=== PATIENT | female | born 1940 | race Caucasian/White ===

== ENCOUNTER → 2016-11-14 | Outpatient (CLI) | payer OTHER ==
--- NOTE | 2016-11-14 16:53 | MAMMOGRAPHY REPORT ---
BILATERAL DIGITAL SCREENING MAMMOGRAM WITH CAD: 11/14/2016 TECHNIQUE: Current study was also evaluated with a Computer Aided Detection (CAD) system. Bilatera l CC and MLO views were obtained. COMPARISON: Comparison is made to exams dated: 10/14/2015 mammogram, 10/13/2014 mammogram, 08/05/2012 mammogram, 07/31/2010 mammogram, 10/12/2013 mammogram, and 08/02/2011 mammogram - [facility]. BREAST COMPOSITION: There are scattered areas of fibroglandular density in both breasts. FINDINGS: No suspicious masses, calcifications, or areas of architectural distortion are noted in e ither breast. There has been no significant interval change compared to prior exams. IMPRESSION: ACR BI-RADS CATEGORY 1: NEGATIVE There is no mammographic evidence of malignancy. A 1 year screening mammogram is recommended. The p atient will receive written notification of the results. Approximately 10% of breast cancers are not detected with mammography. A negative mammographic repor t should not delay biopsy if a clinically suggestive mass is present. Rowan Sebastian M.D. ah/:11/14/2016 15:32:04 Senior Contracts Manager: Lissy GALVAN(Leodan)(M), [facility] letter sent: Normal 1/2 BI-RADS Code: ACR BI-RADS Category 1: Negative
== END | disposition home or self-care (01) ==
LOC: C.MAMM 13:50
PROVIDERS: ATTEND Internal Medicine Geriatric Medicine
DX: Z12.31 Encounter for screening mammogram for malignant neoplasm of breast (principal)

== ENCOUNTER → 2016-11-28 | Outpatient (CLI) | payer OTHER ==
[2016-11-28 16:55] LABS: BLOOD UREA NITROGEN 14 mg/dl (7-18); CARBON DIOXIDE 31 mmol/L (21-32); CHLORIDE 102 mmol/L (98-107); CREATININE 0.81 mg/dl (0.60-1.20); GLUCOSE 81 mg/dl (70-99); SODIUM 139 mmol/L (136-145)
[2016-11-28 17:05] LABS: CHOLESTEROL 236 mg/dl (0-200); CHOLESTEROL/HDL RATIO 4.5; HDL CHOLESTEROL 52 mg/dl; LDL CHOLESTEROL CALCULATED 156 mg/dl; TRIGLYCERIDES 141 mg/dl (0-150); VERY LOW DENSITY LIPOPROT CALC 28 mg/dl
[2016-11-28 17:14] LABS: ESTIMATED AVERAGE GLUCOSE 123 mg/dl; HA1C FLAG Normal (Normal)
== END | disposition home or self-care (01) ==
LOC: C.LAB1850 14:55
PROVIDERS: ATTEND Internal Medicine Geriatric Medicine
DX: I10 Essential (primary) hypertension (principal); E78.5 Hyperlipidemia, unspecified; I48.91 Unspecified atrial fibrillation; R73.9 Hyperglycemia, unspecified; I35.0 Nonrheumatic aortic (valve) stenosis; E55.9 Vitamin D deficiency, unspecified

== ENCOUNTER → 2016-12-05 | Outpatient (CLI) | payer OTHER ==
[2016-12-05 17:03] LABS: BASO ABS # 0.08 K/uL (0-0.2); COMPLETE YES; EOS % 1.3 %; IG% 0.1 %; MEAN CELL VOLUME 93.9 fL (80-100); MEAN CORPUSCULAR HEMOGLOBIN 31.7 pg (25-34); MEAN CORPUSCULAR HGB CONC 33.7 g/dl (32-36); MEAN PLATELET VOLUME 10.5 fL (7.4-10.4); MONO % 11.3 %; NEUT % 50.3 %; PLATELET COUNT 205 K/uL (130-400); RED BLOOD COUNT 4.58 M/uL (4.2-5.4); WHITE BLOOD COUNT 7.77 K/uL (4.8-10.8)
[2016-12-05 17:32] LABS: RHEUMATOID FACTOR < 10.0 U/mL (0-15)
[2016-12-05 18:52] LABS: LYME DISEASE AB IGG NEG (NEG); LYME DISEASE AB IGM NEG (NEG)
[2016-12-12 04:37] LABS: ANTI-CENTROMERE AB <1.0 NEG AI (<1.0 NEG); ANTI-SS-A <1.0 NEG AI (<1.0 NEG); ANTI-SS-B <1.0 NEG AI (<1.0 NEG); DNA ds CRITHIDIA NEGATIVE (NEGATIVE); MICROSOMAL AB <1 IU/ML (<9); Sm Antibody <1.0 NEG AI (<1.0 NEG)
== END | disposition home or self-care (01) ==
LOC: C.LABBC 15:24
PROVIDERS: ATTEND Internal Medicine Geriatric Medicine
DX: M25.50 Pain in unspecified joint (principal); M79.7 Fibromyalgia; M79.1 Myalgia

== ENCOUNTER → 2017-11-01 | Outpatient (CLI) | payer OTHER ==
[2017-11-01 17:23] LABS: BASO % 1.1 %; BASO ABS # 0.07 K/uL (0-0.2); EOS % 1.9 %; EOS ABS # 0.12 K/uL (0-0.5); HEMATOCRIT 43.9 % (37-47); HEMOGLOBIN 14.7 g/dL (12.0-16.0); IG# 0.01 K/uL (0.00-0.02); LYMPH % 38.2 %; LYMPH ABS # 2.46 K/uL (1.2-3.4); MEAN CELL VOLUME 96.9 fL (80-100); MEAN CORPUSCULAR HEMOGLOBIN 32.5 pg (25-34); MEAN CORPUSCULAR HGB CONC 33.5 g/dl (32-36); MEAN PLATELET VOLUME 10.2 fL (7.4-10.4); MONO % 14.3 %; MONO ABS # 0.92 K/uL (0.11-0.59); NEUT % 44.3 %; NEUT ABS # 2.86 K/uL (1.4-6.5); PLATELET COUNT 179 K/uL (130-400); RED CELL DISTRIBUTION WIDTH CV 13.6 % (11.5-14.5); RED CELL DISTRIBUTION WIDTH SD 48.2 fL (36.4-46.3); WHITE BLOOD COUNT 6.44 K/uL (4.8-10.8)
[2017-11-01 17:50] LABS: ALBUMIN 3.8 gm/dl (3.4-5.0); ALT/SGPT 33 U/L (12-78); BLOOD UREA NITROGEN 15 mg/dl (7-18); CALCIUM 9.6 mg/dl (8.5-10.1); CARBON DIOXIDE 29 mmol/L (21-32); CHOLESTEROL 228 mg/dl (0-200); CREATININE 0.74 mg/dl (0.60-1.20); GLUCOSE 85 mg/dl (70-99); SODIUM 137 mmol/L (136-145)
[2017-11-01 18:01] LABS: ALKALINE PHOSPHATASE 63 U/L (45-117); AST/SGOT 31 U/L (15-37); LDL CHOLESTEROL CALCULATED 155 mg/dl; TOTAL PROTEIN 7.6 gm/dl (6.4-8.2)
[2017-11-02 07:34] LABS: HEMOGLOBIN A1C 5.9 % (4.5-5.6)
== END | disposition home or self-care (01) ==
LOC: C.LAB1850 16:17
PROVIDERS: ATTEND Internal Medicine Geriatric Medicine
DX: I10 Essential (primary) hypertension (principal); E78.5 Hyperlipidemia, unspecified; M19.90 Unspecified osteoarthritis, unspecified site; R73.9 Hyperglycemia, unspecified; M79.7 Fibromyalgia

== ENCOUNTER → 2018-02-19 | Outpatient (CLI) | payer OTHER ==
--- NOTE | 2018-02-20 14:16 | MAMMOGRAPHY REPORT ---
BILATERAL DIGITAL SCREENING MAMMOGRAM TOMOSYNTHESIS WITH CAD: 02/19/2018 CLINICAL HISTORY: Routine screening. Patient has no complaints. TECHNIQUE: Breast tomosynthesis in addition to standard 2D mammography was performed. Current study was also evaluated with a Computer Aided Detection (CAD) system. COMPARISON: Comparison is made to exams dated: 11/14/2016 mammogram, 10/14/2015 mammogram, 10/13/2014 m ammogram, 10/12/2013 mammogram, 08/02/2011 mammogram, and 07/31/2010 mammogram - [facility]. BREAST COMPOSITION: There are scattered areas of fibroglandular density in both breasts. FINDINGS: No suspicious masses, calcifications, or areas of architectural distortion are noted in ei ther breast. There has been no significant interval change compared to prior exams. IMPRESSION: ACR BI-RADS CATEGORY 1: NEGATIVE There is no mammographic evidence of malignancy. A 1 year screening mammogram is recommended. The pa tient will receive written notification of the results. Approximately 10% of breast cancers are not detected with mammography. A negative mammographic report should not delay biopsy if a clinically suggestive mass is present. Rowan Sebastian M.D. ah/:02/19/2018 16:57:55 Property Supervisor: Lissy GALVAN(Leodan)(Jose Armando), [facility] letter sent: Normal 1/2 BI-RADS Code: ACR BI-RADS Category 1: Negative
== END | disposition home or self-care (01) ==
LOC: C.MAMM 15:43
PROVIDERS: ATTEND Internal Medicine Geriatric Medicine
DX: Z12.31 Encounter for screening mammogram for malignant neoplasm of breast (principal)

== ENCOUNTER → 2018-04-24 | Outpatient (CLI) | payer OTHER ==
[~2018-04-24] MED LIST: ASPI-461 PO; ENOX120I SQ; LISI40TA PO; METO100T44 PO; MONT1CHW6 PO; NTRSLP4 SL; PLV75 PO; VNTHFA/IN INH; WARF2.5T8 PO; WARF5TAB7 PO
--- NOTE | 2018-04-24 09:23 | DIAGNOSTIC IMAGING REPORT ---
(LIVER) ABDOMEN LIMITED CLINICAL HISTORY: R93.2 Abnormal ultrasound of [id number] pain TECHNIQUE: Ultrasound COMPARISON STUDY: 03/16/2018 FINDINGS: Unchanged exam compared to the prior study. 2 cm hepatic cyst unchanged. There is increased echogenicity previously described is not apparent currently. No evidence of bowel or ductal distention. IMPRESSION: 1. Stable to improved exam. 2. Unchanged small hepatic cyst. 3. The echogenic nodule previously described is not identified currently and appears to have resolved. The above report was generated using voice recognition software. It may contain grammatical, syntax or spelling errors. Electronically signed by: Cecil Allen M.D. 04/24/2018 9:22 AM Dictated Date/Time: 04/24/2018 9:16 AM
== END | disposition home or self-care (01) ==
LOC: C.ULTR 08:03
PROVIDERS: ATTEND Internal Medicine Geriatric Medicine
DX: R93.2 Abnormal findings on diagnostic imaging of liver and biliary tract (principal); K76.89 Other specified diseases of liver